=== PATIENT | male | born 1950 | race Caucasian/White ===

== ENCOUNTER 2019-11-25 09:24 | Emergency (ER) | payer MEDICARE, BC, SELFPAY ==
--- NOTE | ~2019-11-25 | CT_ITS ---
EXAMINATION: CT abdomen pelvis w con DATE: 11/25/2019 11:36 INDICATION: Lower abdominal pain TECHNIQUE: Computed tomography (CT) of the abdomen and pelvis was performed with 100 cc Omnipaque 350 intravenous contrast. Automated exposure control and iterative reconstruction technique were employe d. Exam dose: 542.56 mGy-cm total exam DLP. COMPARISON: 07/10/2011 CT abdomen pelvis FINDINGS: There is bilateral chronic lower lobe discoid scarring, present on 07/10/2011. Normal heart size. No pericardial or pleural effusion. No hepatic, splenic space-occupying mass lesion, with the exception of small likely benign lower post erior splenic cyst.. The gallbladder is present. No gallbladder wall thickening or pericholecystic fl uid or inflammation. No bile duct dilatation. Up to 2.8 x 5.6 cm hypoattenuating mass of the pancreatic body and tail, of concern for possible panc reatic malignancy. Normal adrenal glands. Small left renal cyst. Kidneys are otherwise unremarkable. No urinary tract calculus or hydroureteron ephrosis. There is mild diffuse urinary bladder wall thickening. Prostate enlargement. There are numerous diverticula of the sigmoid and descending colon, with lesser involvement of the ri ght colon. There is pericolic soft tissue stranding in the sigmoid area, thickening of the sigmoid co [place] wall, consistent with sigmoid diverticulitis. No abscess is identified. No bowel obstruction or intraperitoneal free air. There is atherosclerotic calcification of the abdominal aorta and branches but no abdominal aortic an eurysm. No intraperitoneal or retroperitoneal or pelvic lymphadenopathy or ascites. Small fat-containing umbilical hernia. No suspicious osteolytic or osteoblastic lesions. IMPRESSION: Sigmoid diverticulitis Suspected pancreatic malignancy Dr. Griffith telephoned the report including sigmoid diverticulitis and suspected pancreatic malignancy t o emergency room physician Dr. Garland on 12/05/2019 at 1212 hours Reviewed, dictated and finalized at [facility]. Reviewed, dictated and finalized at [facility]. [employer] IMPRESSION: Sigmoid diverticulitis Suspected pancreatic malignancy Dr. Griffith telephoned the report including sigmoid diverticulitis and suspected p ancreatic malignancy to emergency room physician Dr. Garland on 12/05/2019 at 1212 hours
--- NOTE | 2019-11-25 09:36 | ED.ABDPAIN ---
HPI - Abdominal Pain General Chief Complaint: Abdominal Pain Stated Complaint: abd pain Time Seen by Provider: 11/25/19 09:34 Source: patient Mode of arrival: ambulatory Limitations: no limitations History of Present Illness HPI narrative: A 69 y/o male presents to the ED with c/o lower ABD pain. Pt states that the sharp lower ABD started on his left side 2 weeks ago and migrated 4-5 days ago to his entire lower ABD. He notes that the pain is constantly a 3/10, but occasionally intensifies to a 9/10. Pt was at [facility] today and they sent him to the ED to be evaluated further. He reports nausea, dysuria, urinary frequency, and loss of appetite, but denies vomiting, fever, diarrhea, hematuria, chills, and sweats. Dr. Baxter is his PCP. He has a PMHx of hyperlipidemia, HTN, right arthroscopic knee surgery, right trigger thumb surgery, excision of neck skin lesion, cervical fusion, diverticulitis, colonoscopy, and aortic arch ulcer. Pt is a nonsmoker. MD elicited complaint: abdominal pain (Lower) Pertinent past history: diverticulitis Onset (ago): week(s) (2) Pain Consistency: constant Pain scale (0-10): 3 Quality: sharp Associated symptoms: nausea, dysuria and other (Urinary frequency, loss of appetite) Related Data Home Medications Medication Instructions Recorded Confirmed amlodipine 10 mg PO DAILY 11/25/19 aspirin 81 mg PO DAILY 11/25/19 atorvastatin 80 mg PO DAILY 11/25/19 cholecalciferol (vitamin D3) 1,000 unit PO DAILY 11/25/19 [Vitamin D3] ezetimibe 10 mg PO DAILY 11/25/19 metoprolol succinate 25 mg PO DAILY 11/25/19 nitroglycerin 0.4 mg SUBLINGUAL PRN 11/25/19 Allergies Allergy/AdvReac Type Severity Reaction Status Date / Time No Known Allergies Allergy Mild Verified 11/25/19 10:11 Review of Systems Review of Systems: All systems reviewed & are unremarkable except as noted in HPI and below Constitutional: Constitutional: Denies chills, Denies fever(s), Reports poor appetite and Denies other (Sweats) Gastrointestinal: Gastrointestinal: Reports abdominal pain (Lower), Denies diarrhea, Reports nausea and Denies vomiting Genitourinary: Genitourinary: Denies hematuria, Reports dysuria and Reports urinary frequency PMFSH Past Medical History Medical History (Updated 11/25/19 @ 13:35 by Trisha Garland MD) Aortic arch aneurysm Diverticulitis HTN (hypertension) Hyperlipidemia Trigger thumb of right hand With surgery Surgical History Surgical History (Updated 11/25/19 @ 09:49 by Norah Wilkins) H/O local excision of skin lesion On neck History of arthroscopic knee surgery Right History of colonoscopy History of fusion of cervical spine Social History Social History (Updated 11/25/19 @ 09:47 by Norah Wilkins) Smoking status: Never smoker Exam Const: General: cooperative, no acute distress and alert Nutritional Appearance: well nourished Orientation/consciousness: patient oriented x3 Limitations: no limitations HENMT: Mouth: Yes lip normal and Yes moist mucous membranes Resp: Effort & Inspection: normal respiratory effort Auscultation: clear to auscultation bilaterally Cardio: Rate: regular rate Rhythm: regular rhythm GI: GI Palp: Yes Soft to palpation, Yes Tenderness to palpation present (GI) (Diffuse lower) and Yes Guarding due to palpation present (GI) Auscultation: normal bowel sounds Skin: General skin exam: normal color Neuro: General: patient oriented x3 Cognition (Neuro): normal cognition Speech: normal speech Extrem: General: normal to inspection, full ROM and no clubbing, cyanosis or edema Psych: Mental Status: mental status grossly normal Affect: normal affect Attitude: cooperative Course Course Emergency Course: Patient with findings of acute diverticulitis without perforation or abscess. Patient is nontoxic in appearance with normal vital signs and aside from mildly elevated white blood cell count unremarkable labs. Patient does have incidental
[2019-11-25 09:39] VITALS: BP 135/75; PULSE 69; RESP 20; TEMP 36.6; O2SAT 99
[2019-11-25 09:49] LABS: Basophils Absolute Auto 0.1 K/mm3 (0.0-0.1); Basophils Percent Auto 0.4 % (0.2-1.2); Eosinophils Absolute Auto 0.1 K/mm3 (0-0.3); Eosinophils Percent Auto 0.7 % (0-4.4); Hematocrit 51.5 % (42.0-52.0); Hemoglobin 17.4 g/dL (14.0-18.0); Immature Granulocyte Absolute 0.04 K/mm3 (0.00-0.031); Immature Granulocyte Percent A 0.3 % (0-0.5); Lymphocytes Absolute Auto 1.77 K/mm3 (0.9-3.2); Lymphocytes Percent Auto 13.9 % (18.3-44.2); Mean Corpuscular HGB Conc 33.8 g/dl (32-36); Mean Corpuscular Hemoglobin 29.6 pg (26-34); Mean Corpuscular Volume 87.6 fl (80-100); Mean Platelet Volume 9.2 fl (7.4-10.4); Monocytes Absolute Auto 0.9 K/mm3 (0.1-0.6); Monocytes Percent Auto 6.9 % (2.6-8.5); Neutrophils Absolute Auto 9.9 K/mm3 (1.3-6.7); Neutrophils Percent Auto 77.8 % (45.5-73.1); Platelet Count Result 199 k/mm3 (150-375); Red Blood Count 5.88 M/mm3 (4.6-6.20); Red Cell Distribution Width 13.4 % (11.5-14.5); White Blood Count 12.7 K/mm3 (4.5-10.0)
[2019-11-25 11:02] LABS: Add Urine Microscopic? NO; Appearance Urine Clear (Clear); Bilirubin Urine Negative (Negative); Blood Urine Negative (Negative); Color Urine Yellow (Yellow); Glucose Urine UA Negative (Negative); Ketones Urine Negative (Negative); Leukocyte Esterase Ur Negative LEU/UL (Negative); Nitrate Urine Negative (Negative); Protein Urine Negative (Negative); Specific Grav Ur 1.024 (1.001-1.035); Urobilinogen Urine Negative mg/dL (<2.0)
[2019-11-25 11:15] LABS: Alanine Aminotransferase 27 U/L (4-50); Albumin Level 4.4 g/dL (3.5-5.1); Alkaline Phosphatase 97 U/L (38-126); Aspartate Amino Transferase 25 U/L (17-59); Bilirubin,Total 1.5 mg/dL (0.2-1.3); Blood Urea Nitrogen 19 mg/dL (9-20); Calcium 9.5 mg/dL (8.4-10.2); Carbon Dioxide 29 mmol/L (22-30); Chloride 98 mmol/L (98-107); Estimated CRCL calculation 62 ml/min; Estimated Glomerular Filt Rate > 60; Glucose 109 mg/dL (75-110); Lipase 128 U/L (23-300); Potassium 3.9 mmol/L (3.4-5.0); Sodium 140 mmol/L (137-145)
[2019-11-25 13:50] VITALS: BP 134/78; PULSE 68; RESP 20; O2SAT 99
== END 2019-11-25 13:50 | disposition home or self-care (01) ==
PROVIDERS: Emergency Provider Emergency Medicine; PCP Family Medicine
DX: K57.92 Diverticulitis of intestine, part unspecified, without perforation or abscess without bleeding (principal); K86.9 Disease of pancreas, unspecified; I10 Essential (primary) hypertension; E78.5 Hyperlipidemia, unspecified; Z98.1 Arthrodesis status
CPT/HCPCS: 36415; 74177; 80053; 81003; 83690; 85025; 99284; Q9967

== ENCOUNTER 2020-05-18 13:43 | Observation (INO) | payer MEDICARE, BC, SELFPAY ==
--- NOTE | ~2020-05-18 | XR_ITS ---
XR chest 2V 05/18/2020 14:43 Indication: Nausea. Chemotherapy treatment for pancreatic cancer. Weakness. Procedure: PA and lateral views of the chest Comparison: CT dated 11/25/2019 Findings: Heart size normal. There is left lower lobe atelectasis/scarring. Portacatheter tip in the SVC. No focal pneumonia, pulmonary edema, pleural effusion or pneumothorax. Impression: 1: Left lower lobe atelectasis/scarring. Reviewed, dictated and finalized at location [facility]. Impression: 1: Left lower lobe atelectasis/scarring.
--- NOTE | ~2020-05-18 | XR_ITS ---
EXAMINATION: XR abdomen obstructive series DATE: 05/18/2020 20:51 INDICATION: Nausea and vomiting TECHNIQUE: Supine and upright views of the abdomen. FINDINGS: Comparison CT dated 11/25/2019 The visualized lung parenchyma is normal.. There is a nonobstructive bowel gas pattern. Gas and stool are seen throughout the colon to the level of the rectum. There is no free air. There is left basil ar atelectasis. IMPRESSION: 1. No acute abdominal abnormality. Reviewed, dictated and finalized at location [facility].
[2020-05-18 14:02] VITALS: BP 118/77; PULSE 97; RESP 18; TEMP 36.8; O2SAT 98
--- NOTE | 2020-05-18 14:08 | ECG_ITS ---
Measurements Intervals [place] Rate: 85 P: 73 ND: 132 QRS: 90 QRSD: 103 T: 6 QT: 355 QTc: 424 Interpretive Statements SINUS RHYTHM INCOMPLETE RIGHT BUNDLE BRANCH BLOCK BORDERLINE ST ABNORMALITY- ANTEROLAT/INF LEADS BORDERLINE ECG Electronically Signed On 05-18-2020 16:20:28 CDT by Rocael Lomax D.O.
[2020-05-18 14:12] VITALS: PULSE 100
[2020-05-18 14:30] LABS: Basophils Percent Auto 0.3 % (0.2-1.2); Eosinophils Absolute Auto 0.3 K/mm3 (0-0.3); Eosinophils Percent Auto 2.9 % (0-4.4); Hematocrit 51.3 % (42.0-52.0); Hemoglobin 17.3 g/dL (14.0-18.0); Immature Granulocyte Absolute 0.08 K/mm3 (0.00-0.031); Immature Granulocyte Percent A 0.7 % (0-0.5); Lymphocytes Absolute Auto 1.63 K/mm3 (0.9-3.2); Lymphocytes Percent Auto 15.2 % (18.3-44.2); Mean Corpuscular HGB Conc 33.7 g/dl (32-36); Mean Corpuscular Hemoglobin 28.3 pg (26-34); Mean Platelet Volume 9.5 fl (7.4-10.4); Monocytes Absolute Auto 0.4 K/mm3 (0.1-0.6); Monocytes Percent Auto 3.6 % (2.6-8.5); Neutrophils Absolute Auto 8.3 K/mm3 (1.3-6.7); Neutrophils Percent Auto 77.3 % (45.5-73.1); Platelet Count Result 303 k/mm3 (150-375); Red Blood Count 6.11 M/mm3 (4.6-6.20); Red Cell Distribution Width 15.3 % (11.5-14.5); White Blood Count 10.7 K/mm3 (4.5-10.0)
[2020-05-18 14:42] LABS: Alanine Aminotransferase 14 U/L (4-50); Albumin Level 4.6 g/dL (3.5-5.1); Alkaline Phosphatase 96 U/L (38-126); Anion Gap 16.7 mmol/L (7-16); Aspartate Amino Transferase 21 U/L (17-59); Bilirubin,Total 0.9 mg/dL (0.2-1.3); Blood Urea Nitrogen 17 mg/dL (9-20); Calcium 10.2 mg/dL (8.4-10.2); Carbon Dioxide 29 mmol/L (22-30); Chloride 93 mmol/L (98-107); Estimated CRCL calculation 58 ml/min; Estimated Glomerular Filt Rate > 60; Glucose 155 mg/dL (75-110); Potassium 3.7 mmol/L (3.4-5.0); Sodium 135 mmol/L (137-145)
[2020-05-18 14:46] LABS: Add Urine Microscopic? YES; Appearance Urine Clear (Clear); Bacteria Urine Trace /hpf; Bilirubin Urine Negative (Negative); Blood Urine Negative (Negative); Color Urine Yellow (Yellow); Glucose Urine UA Negative (Negative); Hyaline Casts Urine 20-29 /lpf; Ketones Urine Trace mg/dL (Negative); Leukocyte Esterase Ur Negative LEU/UL (Negative); Mucus Urine Heavy /lpf; Nitrate Urine Negative (Negative); Protein Urine 1+ mg/dL (Negative); RBC Urine 0-2 /hpf (0-2); Specific Grav Ur 1.025 (1.001-1.035); Squamous Epithelial Cell Urine Rare /hpf (Few); Urobilinogen Urine Negative mg/dL (<2.0); WBC Urine 0-3 /hpf
[2020-05-18] MEDS: SODIUM CHLORIDE 0.9% IV 1,000 ML 1000 ML IV CONT (15:43)
[2020-05-18] MEDS: ONDANSETRON INJ 4 MG/2 ML VIAL IV PUSH (15:43)
[2020-05-18 16:38] VITALS: BP 144/80; PULSE 68; RESP 18; O2SAT 96
--- NOTE | 2020-05-18 16:47 | ED.GENADULT ---
HPI - General Adult General Chief complaint: Weakness Stated complaint: medication reaction Time Seen by Provider: 05/18/20 14:58 Source: patient and family Mode of arrival: ambulatory Limitations: no limitations History of Present Illness HPI narrative: 69-year-old with a history of pancreatic CA presently going through chemotherapy at [facility] [place] here with complaints of nausea vomiting unable to eat or drink. Patient states that he is feeling extremely weak and tired since chemotherapy approximately 5 days ago. He denies any fever or chills no history of cough or shortness of breath. He states that he has abdominal pain for last several months but nothing unusual at this time. His oncologist is Dr. Sandhu . Onset (ago): week(s) (1) Location: abdomen Severity: moderate Severity scale (1-10): 9 Quality: aching Pain Consistency: constant Relieving factors: none Exacerbating factors: none Associated symptoms: denies other symptoms Related Data Home Medications Medication Instructions Recorded Confirmed atorvastatin 80 mg PO DAILY 11/25/19 ezetimibe 10 mg PO DAILY 11/25/19 acetaminophen 1,000 mg PO Q6H PRN 05/18/20 duloxetine 30 mg PO 05/18/20 ergocalciferol (vitamin D2) 05/18/20 [Vitamin D2] gabapentin 300 mg PO 05/18/20 lidocaine-prilocaine 05/18/20 loperamide 2 mg PO 05/18/20 naproxen sodium [Aleve] 220 mg PO BID PRN 05/18/20 ondansetron HCl 8 mg PO 05/18/20 tamsulosin 0.4 mg PO 05/18/20 tramadol 50 mg PO 05/18/20 Allergies Allergy/AdvReac Type Severity Reaction Status Date / Time No Known Allergies Allergy Mild Verified 05/18/20 14:15 Review of Systems Review of Systems: All systems reviewed & are unremarkable except as noted in HPI and below Constitutional: Constitutional: Reports no additional constitutional complaints Eyes: Eyes: Reports no additional eye complaints ENT: Reports system reviewed and no additional complaints, except as documented Cardiovascular: Cardiovascular: Reports no additional cardiovascular complaints Respiratory: Respiratory: Reports no additional respiratory complaints Gastrointestinal: Gastrointestinal: Reports as per HPI Musculoskeletal: Musculoskeletal: Reports no additional musculoskeletal complaints Neurologic: Reports system reviewed and no additional complaints, except as documented [facility] Past Medical History Medical History Aortic arch aneurysm Diverticulitis HTN (hypertension) Hyperlipidemia Trigger thumb of right hand With surgery Surgical History Surgical History H/O local excision of skin lesion On neck History of arthroscopic knee surgery Right History of colonoscopy History of fusion of cervical spine Social History Social History Smoking status: Never smoker Gender identity (if verbalized by the patient): Male Exam Const: General: no acute distress and alert Orientation/consciousness: patient oriented x3 HENMT: Head: normal to inspection Eyes: Pupils: Equal, round and reactive pupils present Chest: Chest palpation & inspection: normal inspection of the chest Resp: Effort & Inspection: normal respiratory effort Cardio: Rate: regular rate Rhythm: regular rhythm GI: GI Palp: Yes Soft to palpation and Yes Tenderness to palpation present (GI) (mostly upper abd) Back/Spine/Pelvis: Back: no CVA tenderness Skin: General skin exam: normal color Neuro: General: patient oriented x3 and moves all extremities Course Course Emergency Course: Patient feeling slightly better after liter of fluid and Zofran, he still continues to be nauseated. I informed him about his lab work he agreed for admission. Discussed with Ana and he agreed to admit patient Vital Signs Vital signs: Vital Signs Temperature 36.8 C 05/18/20 14:02 Pulse Rate 97 05/18/20
[2020-05-18 17:02] VITALS: BP 134/87; PULSE 73; RESP 18; O2SAT 97
[2020-05-18] MEDS: PANTOPRAZOLE SODIUM IV 40 MG VIAL IV PUSH (18:10)
[2020-05-18 18:26] VITALS: BMI 21.9
[2020-05-18 18:31] VITALS: BP 145/80; PULSE 69; RESP 18; TEMP 36.4; O2SAT 100
[2020-05-18] MEDS: SODIUM CHLORIDE 0.9% IV 1,000 ML 125 ML IV CONT (19:10)
[2020-05-18 20:00] VITALS: BP 137/74; PULSE 75; RESP 16; TEMP 36.5; O2SAT 97
--- NOTE | 2020-05-18 20:27 | PM.IMHP ---
H&P: HPI History of Present Illness Date/Time: 05/18/20 20:27 Chief complaint: intractable nausea and dehydration Narrative: Ajit Ocampo is a 69 year old maleWho has a history of pancreatic cancer. The patient withdrawal Whipple earlier this year. He had gotten chemotherapy prior to his Whipple and recently had chemotherapy approximately 5 days ago. The patient stated he has not had a bowel movement the this past Tuesday. The patient stated that this last he had a bag of fluids to the [facility]. She typically goes to [facility] for of his treatment is chemotherapy. His oncologist is Dr. Torres. the patient stated that he has been vomiting very little just some yellow phlegm. He has not had any fever or chills. He stated that he did have anything for nausea at home. He only takes gabapentin and baclofen. He is having some epigastric discomfort as well. He does have a history of diverticulosis with diverticulitis in the past a. However his pain is in the epigastric area. 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 The patient was given Zofran and Protonix in the emergency room. He was also started on IV fluids. He started to feel better that when he ate some Jell-O he had some epigastric discomfort. I spent approximately 1 hour with the patient. Date of service 05/18/2020 Review of Systems Review of Systems: All systems reviewed & are unremarkable except as noted in HPI and below Constitutional: Constitutional: Reports as per HPI and Reports no additional constitutional complaints Eyes: Eyes: Reports as per HPI and Reports no additional eye complaints ENT: Reports system reviewed and no additional complaints, except as documented and Reports Normal hearing present Cardiovascular: Cardiovascular: Reports no additional cardiovascular complaints Respiratory: Respiratory: Reports no additional respiratory complaints and Reports no additional respiratory complaints Gastrointestinal: Gastrointestinal: Reports as per HPI and Reports no additional gastrointestinal complaints Musculoskeletal: Musculoskeletal: Reports no additional musculoskeletal complaints Integumentary/Breasts: Skin/Breast: Reports system reviewed and no additional complaints, except as docu and Reports as per HPI Neurologic: Reports system reviewed and no additional complaints, except as documented, Reports as per HPI and Reports Normal hearing present Psychiatric: Psychiatric: Reports no additional psychiatric complaints and Reports as per HPI Endocrine: Endocrine: Reports no additional endocrine complaints Hematologic/Lymphatic: Hematologic/Lymphatic: Reports no additional hematologic/lymphatic complaints Allergic/Immunologic: Allergic/Immunologic: Reports no additional allergic/immunologic complaints [facility] Past Medical History Medical History (Updated 05/18/20 @ 20:41 by Ana Lugo NP) Aortic arch aneurysm Chemotherapy-induced neuropathy Diverticulitis HTN (hypertension) Hyperlipidemia Pancreatic cancer Port-A-Cath in place left upper chest Trigger thumb of right hand With surgery Surgical History Surgical History (Updated 05/18/20 @ 20:41 by Ana Lugo NP) H/O abdominal surgery Whipple procedure due to pancreatic cancer H/O cataract extraction bilat H/O local excision of skin lesion On neck History of arthroscopic knee surgery Right History of colonoscopy History of fusion of cervical spine Family History Family History (Updated 05/18/20 @ 20:40 by Ana Lugo NP) Father Pancreatic cancer Mother Kidney problem Social History Social History (Updated 05/18/20 @ 20:43 by Ana Lugo NP) Social History: the patient is and his is a durable for healthcare. The patient is a full code. He has 1 child. Patient stated that he retired from the [employer]
[2020-05-19] VITALS: BP 141/81; PULSE 72; RESP 16; TEMP 36.2; O2SAT 97
[2020-05-19] MEDS: SODIUM CHLORIDE 0.9% IV 1,000 ML 125 ML IV CONT ×2 (03:27→11:43)
[2020-05-19 04:00] VITALS: BP 127/71; PULSE 70; RESP 16; TEMP 36.8; O2SAT 96
[2020-05-19 05:31] LABS: Basophils Percent Auto 0.4 % (0.2-1.2); Eosinophils Absolute Auto 0.6 K/mm3 (0-0.3); Eosinophils Percent Auto 7.5 % (0-4.4); Hematocrit 39.5 % (42.0-52.0); Hemoglobin 13.2 g/dL (14.0-18.0); Immature Granulocyte Absolute 0.07 K/mm3 (0.00-0.031); Immature Granulocyte Percent A 0.9 % (0-0.5); Lymphocytes Absolute Auto 1.65 K/mm3 (0.9-3.2); Lymphocytes Percent Auto 20.2 % (18.3-44.2); Mean Corpuscular HGB Conc 33.4 g/dl (32-36); Mean Corpuscular Hemoglobin 27.9 pg (26-34); Mean Corpuscular Volume 83.5 fl (80-100); Mean Platelet Volume 9.5 fl (7.4-10.4); Monocytes Absolute Auto 0.4 K/mm3 (0.1-0.6); Monocytes Percent Auto 5.4 % (2.6-8.5); Neutrophils Absolute Auto 5.4 K/mm3 (1.3-6.7); Neutrophils Percent Auto 65.6 % (45.5-73.1); Platelet Count Result 262 k/mm3 (150-375); Red Blood Count 4.73 M/mm3 (4.6-6.20); Red Cell Distribution Width 14.7 % (11.5-14.5); White Blood Count 8.2 K/mm3 (4.5-10.0)
[2020-05-19 05:41] LABS: Lactic Acid 0.8 mmol/L (0.7-2.1)
[2020-05-19 05:46] LABS: Anion Gap 7.6 mmol/L (7-16); Blood Urea Nitrogen 14 mg/dL (9-20); Calcium 8.4 mg/dL (8.4-10.2); Carbon Dioxide 26 mmol/L (22-30); Chloride 105 mmol/L (98-107); Estimated CRCL calculation 77 ml/min; Estimated Glomerular Filt Rate > 60; Glucose 133 mg/dL (75-110); Phosphorus 3.2 mg/dL (2.5-4.5); Potassium 3.6 mmol/L (3.4-5.0); Sodium 135 mmol/L (137-145)
[2020-05-19 08:08] LABS: Free T4 Free Thyroxine Reflex 1.33 ng/dL (0.78-2.19)
[2020-05-19] MEDS: PANTOPRAZOLE SODIUM IV 40 MG VIAL IV PUSH (08:25)
[2020-05-19] MEDS: GABAPENTIN 300 MG CAPSULE PO (08:26)
[2020-05-19] MEDS: BACLOFEN 10 MG TABLET PO ×2 (08:26→12:31)
[2020-05-19 09:03] LABS: Total Triiodothyronine (T3) 1.08 NG/ML (0.97-1.69)
[2020-05-19 10:00] VITALS: BP 116/55; PULSE 73; RESP 16; TEMP 36.7; O2SAT 98
--- NOTE | 2020-05-19 12:18 | PM.DS ---
DS: Admitting Diagnosis Admitting Diagnosis Admitting Diagnosis: Nausea with vomiting, unspecified DS: Discharge Diagnosis Discharge Diagnosis (1) Intractable nausea and vomiting: Code(s): R11.2 - Nausea with vomiting, unspecified Status: Acute Assessment and Plan: Date of Service 05/19/20 Mr. Ocampo is a pleasant 69 yo M with pancreatic cancer who presented to the ED for evaluation of weakness, lethargy, dizziness, decreased appetite and significant nausea. He follows with Dr Charmaine Huddleston at [facility] for pancreatic cancer, underwent Whipple March 2020 and recently restarted chemotherapy last week. He received chemotherapy last on Tuesday and his symptoms began after chemo. He received a bag of IV fluids at [facility] . He describes significant nausea and intermittent vomiting with just a small amount of mucus. Not able to eat or drink much of anything and had not had a bowel movement in the days prior to arrival. KUB showed no evidence of obstruction. He was rehydrated with approximately 3L of normal saline over the course of 05/18 to 05/19, treated with zofran. He was tolerating a bit of a bland diet prior to discharge and was feeling improved. Vitals were stable and he was hemodynamically stable for discharge 05/19/20. He has an upcoming appointment next week with his oncologist, Dr Huddleston, and he is instructed to keep this appointment and call her office if he has any other issues, return to ER if needed. (2) Chemotherapy-induced neuropathy: Code(s): G62.0 - Drug-induced polyneuropathy; T45.1X5A - Adverse effect of antineoplastic and immunosuppressive drugs, initial encounter Status: Chronic Assessment and Plan: Maintained on his gabapentin. (3) Chemotherapy induced nausea and vomiting: Code(s): R11.2 - Nausea with vomiting, unspecified; T45.1X5A - Adverse effect of antineoplastic and immunosuppressive drugs, initial encounter Status: Acute Assessment and Plan: See above. It is suspected that his symptoms are related to cancer and recent chemotherapy. (4) Dehydration: Code(s): E86.0 - Dehydration Status: Resolved DS: Summary Time Spent with Patient Time attestation: Total time spent providing and/or coordinating discharge services: 35 minutes Exam Narrative: Exam Narrative: General: Male sitting up in bedside chair eating lunch in no acute distress. HEENT: Normocephalic, EOMI, oral mucosa moist. Cardiovascular: Rate and rhythm are regular. Respiratory: Lungs clear to auscultation all sharp. Non-labored breathing. Abdomen: Soft, non-tender, non-distended, bowel sounds hypoactive. Extremities: Peripheral pulses intact. No edema. Neuro: No focal neurological deficits. Speech is slow and very mildly delayed thought process he describes has been ongoing since he began chemotherapy. DS: Data Data Completed and Pending Labs on day of discharge: Last Vital Signs Temp 98.0 F 05/19/20 10:00 Pulse 73 05/19/20 10:00 Resp 16 05/19/20 10:00 BP 116/55 L 05/19/20 10:00 Pulse Ox 98 05/19/20 10:00 ITS Impressions Chest X-Ray 05/18/20 14:43 Impression: 1: Left lower lobe atelectasis/scarring. Abdomen X-Ray 05/18/20 20:56 IMPRESSION: 1. No acute abdominal abnormality. Laboratory Tests 05/19/20 04:50 05/19/20 04:50 Discharge Plan Discharge Attending physician on discharge: [place] Discharging Clinician: Yumiko Dodd Anticipated Discharge Date/Time: 05/19/20 12:20 Patient Disposition: Home, Self-Care Activity: as tolerated Diet: as tolerated Discharge Instructions: Keep your scheduled follow up appointment with Dr. Huddleston for next week. If you experience worsening symptoms, please notify her office or return to ER. Eating small meals through the day may help with your na
[2020-05-19 12:48] VITALS: BMI 21.3
--- NOTE | 2020-05-19 15:45 | PCCCNOTE ---
On 05/19/20, the student, [ Sadie White], provided care and [facility]. I have reviewed the student's documentation and agree with the findings.
== END 2020-05-19 13:00 | disposition home or self-care (01) ==
LOC: ANHED 17:26 → ANH2MED 17:49
PROVIDERS: Emergency Medicine; Nurse Practitioner; Admitting Provider Internal Medicine; Emergency Provider Family Medicine; PCP Family Medicine; Visit Provider Physician Assistant
DX: R11.2 Nausea with vomiting, unspecified (principal); G62.0 Drug-induced polyneuropathy; T45.1X5A Adverse effect of antineoplastic and immunosuppressive drugs, initial encounter; E86.0 Dehydration; C25.9 Malignant neoplasm of pancreas, unspecified; I10 Essential (primary) hypertension; E78.5 Hyperlipidemia, unspecified; Z92.21 Personal history of antineoplastic chemotherapy
CPT/HCPCS: 36415; 71046; 74019; 80048; 80053; 81001; 83605; 83735; 84100; 84439; 84443; 84480; 85025; 93005; 96361; 96374; 96375; 96376; 99285; A9270; C9113; G0378; J0131; J2405; J3010; J7030

== ENCOUNTER 2020-05-30 14:48 | Emergency (ER) | payer MEDICARE, BC, SELFPAY ==
[2020-05-30] VITALS (9 sets, daily range): BP systolic 109–144; BP diastolic 63–81; PULSE 63–81; RESP 14–20; TEMP 36.8; O2SAT 95–99
--- NOTE | ~2020-05-30 | CT_ITS ---
EXAMINATION: CT abdomen pelvis w con EXAM DATE: 05/30/2020 18:12 INDICATION: Low abdominal pain, pancreatic cancer. Whipple procedure. Nausea. TECHNIQUE: Spiral CT of the abdomen and pelvis was performed following intravenous injection of 100 m L Omnipaque 350. Axial, coronal and sagittal images were reviewed. The dose-length product (DLP) fo r this examination was 233.11 mGy-cm. The exposure was tailored according to patient size (auto mA e xposure control), and iterative reconstruction (ASIR) was used as additional dose reduction technique . Comparison is made to prior examination from 12/06/2008. FINDINGS: Right lower lobe segmental pulmonary emboli. There is also a sizable hypodense region suspi cious for large thrombus extending from the SVC across the tricuspid valve to the right atrium. This measures 1.1 cm in thickness. Appearance is quite discrete for inflow artifact and given the right ba silar pulmonary emboli, artifact is believed unlikely. Additionally, reportedly patient does have a P ICC line. There are surgical changes from Whipple procedure, with resection of the previously seen pancreatic t ail hypodense mass. There is low density at the root of the mesentery, expected location of pancreati c body which could be edema from acute pancreatitis, or could be local recurrence of pancreatic cance r. Region measures about 3 cm in diameter. Adrenal glands and liver are unremarkable. Spleen has been resected. Gallbladder is unremarkable. No biliary obstruction. Kidneys enhance symmetrically. There is no hydronephrosis. The prostate is unremarkable. The bladder is unremarkable. There is no retroperitoneal or pelvic lymphadenopathy. There is moderate scattered arteriosclerotic disease. There is extensive colonic diverticulosis. There is no adjacent inflammatory change to suggest diver ticulitis. The appendix is not positively visualized. There is no pericecal inflammatory change to s uggest appendicitis. The stomach and small bowel are unremarkable. There is expected amount of col onic stool. No free intraperitoneal gas. The lung bases are unremarkable. There are no osteoblas tic or osteolytic lesions identified. IMPRESSION: 1. Right basilar pulmonary emboli. Also suspect sizable thrombus extending down the SVC into the rig ht ventricle. 2. Hypodense pancreatic body region, acute pancreatitis versus pancreatic cancer. 3. Extensive colonic diverticulosis. 4. Small nonspecific free pelvic fluid. I discussed thromboembolic disease, pancreatic findings with Héctor Nolan MD at 05/30/2020 18:24 CDT. Reviewed, dictated and finalized at location A. IMPRESSION: 1. Right basilar pulmonary emboli. Also suspect sizable thrombus extending sammie n the SVC into the right ventricle. 2. Hypodense pancreatic body region, acute pancreatitis versus pancreatic canc er. 3. Extensive colonic diverticulosis. 4. Small nonspecific free pelvic fluid. I discussed thromboembolic disease, pancreatic findings with Héctor Nolan MD at 05/30/2020 18:24 CDT.
--- NOTE | ~2020-05-30 | XR_ITS ---
EXAMINATION: XR chest 2V EXAM DATE: 05/30/2020 16:59 INDICATION: Weakness, nausea. Symptoms after chemotherapy. Mid chest pain, abdominal pain. TECHNIQUE: Frontal and lateral projections of the chest obtained and reviewed. Comparison is made to prior examination from 05/18/2020. FINDINGS: Moderate chronic hyperinflation. Left-sided CT injectable Chemo-Port. Cervical fusion hard villa. No confluent consolidation, pneumothorax or pleural effusion suspected. There are no osseous ab normalities identified. IMPRESSION: No acute cardiopulmonary findings. Reviewed, dictated and finalized at location A.
--- NOTE | 2020-05-30 15:09 | ECG_ITS ---
Measurements Intervals [place] Rate: 67 P: 80 SC: 135 QRS: 86 QRSD: 104 T: 61 QT: 365 QTc: 388 Interpretive Statements SINUS RHYTHM RSR' IN V1 OR V2, CONSIDER RIGHT VENTRICULAR HYPERTROPHY OR RIGHT VCD BASELINE ARTIFACT- I, II, III, AVR, AVL, AVF, V1-V6 BORDERLINE ECG Electronically Signed On 05-30-2020 15:47:02 CDT by Rocael Lomax D.O.
[2020-05-30 15:42] LABS: Basophils Percent Auto 0.4 % (0.2-1.2); Hematocrit 44.1 % (42.0-52.0); Hemoglobin 14.8 g/dL (14.0-18.0); Immature Granulocyte Absolute 0.02 K/mm3 (0.00-0.031); Immature Granulocyte Percent A 0.3 % (0-0.5); Lymphocytes Absolute Auto 1.36 K/mm3 (0.9-3.2); Lymphocytes Percent Auto 18.4 % (18.3-44.2); Mean Corpuscular HGB Conc 33.6 g/dl (32-36); Mean Corpuscular Hemoglobin 27.9 pg (26-34); Mean Corpuscular Volume 83.1 fl (80-100); Mean Platelet Volume 9.1 fl (7.4-10.4); Monocytes Absolute Auto 0.3 K/mm3 (0.1-0.6); Monocytes Percent Auto 3.9 % (2.6-8.5); Neutrophils Absolute Auto 5.7 K/mm3 (1.3-6.7); Platelet Count Result 282 k/mm3 (150-375); Red Blood Count 5.31 M/mm3 (4.6-6.20); Red Cell Distribution Width 15.6 % (11.5-14.5); White Blood Count 7.4 K/mm3 (4.5-10.0)
[2020-05-30 15:51] LABS: Alanine Aminotransferase 14 U/L (4-50); Albumin Level 4.1 g/dL (3.5-5.1); Alkaline Phosphatase 91 U/L (38-126); Anion Gap 9 mmol/L (8-16); Aspartate Amino Transferase 18 U/L (17-59); Bilirubin,Total 0.7 mg/dL (0.2-1.3); Blood Urea Nitrogen 22 mg/dL (9-20); Calcium 9.3 mg/dL (8.4-10.2); Carbon Dioxide 27 mmol/L (22-30); Chloride 97 mmol/L (98-107); Estimated CRCL calculation 47 ml/min; Estimated Glomerular Filt Rate 55; Glucose 145 mg/dL (75-110); Sodium 133 mmol/L (137-145)
[2020-05-30] MEDS: MORPHINE SULFATE 4 MG/ML INJ IV PUSH (17:37)
[2020-05-30] MEDS: ONDANSETRON INJ 4 MG/2 ML VIAL IV PUSH (17:37)
--- NOTE | 2020-05-30 18:36 | ED.GENADULT ---
HPI - General Adult General Chief complaint: Weakness <Héctor Nolan MD - Last Filed: 05/30/20 23:28> Stated complaint: weakness, nausea post chemo <Héctor Nolan MD - Last Filed: 05/30/20 23:28> Time Seen by Provider: 05/30/20 16:44 <Héctor Nolan MD - Last Filed: 05/30/20 23:28> History of Present Illness HPI narrative: Patient is a 69-year-old male with history of pancreatic cancer who is undergoing chemotherapy that presents with abdominal pain. Reports abdominal pain began 2 days ago. Last received chemotherapy today before symptoms began. Associate with nausea and fatigue. Cannot describe any aggravating or alleviating factors. He has been taking baclofen without relief of the pain and Zofran and prochlorperazine without relief of nausea. Obtains his care from [facility]. <Héctor Nolan MD - Last Filed: 05/30/20 23:28> Related Data Home medications: Home Medications Medication Instructions Recorded Confirmed baclofen 10 mg PO TID 05/18/20 05/18/20 prochlorperazine maleate 05/30/20 <Héctor Nolan MD - Last Filed: 05/30/20 23:28> Allergies/adverse reactions: Allergies Allergy/AdvReac Type Severity Reaction Status Date / Time No Known Allergies Allergy Mild Verified 05/30/20 16:47 <Héctor Nolan MD - Last Filed: 05/30/20 23:28> Review of Systems Review of Systems: All systems reviewed & are unremarkable except as noted in HPI and below <Héctor Nolan MD - Last Filed: 05/30/20 23:28> Constitutional: Constitutional: Reports fatigue and Reports weakness <Héctor Nolan MD - Last Filed: 05/30/20 23:28> Cardiovascular: Cardiovascular: Denies chest pain and Denies rapid heart rate <Héctor Nolan MD - Last Filed: 05/30/20 23:28> Respiratory: Respiratory: Denies cough and Denies dyspnea <Héctor Nolan MD - Last Filed: 05/30/20 23:28> Gastrointestinal: Gastrointestinal: Reports abdominal pain, Denies diarrhea, Reports nausea and Denies vomiting <Héctor Nolan MD - Last Filed: 05/30/20 23:28> PMFSH Past Medical History Medical History: Medical History (Updated 05/30/20 @ 21:22 by Héctor Nolan MD) Aortic arch aneurysm Chemotherapy-induced neuropathy Diverticulitis HTN (hypertension) Hyperlipidemia Pancreatic cancer Port-A-Cath in place left upper chest Trigger thumb of right hand With surgery <Héctor Nolan MD - Last Filed: 05/30/20 23:28> Surgical History Surgical History: Surgical History (Updated 05/18/20 @ 20:41 by Ana Lugo NP) H/O abdominal surgery Whipple procedure due to pancreatic cancer H/O cataract extraction bilat H/O local excision of skin lesion On neck History of arthroscopic knee surgery Right History of colonoscopy History of fusion of cervical spine <Héctor Nolan MD - Last Filed: 05/30/20 23:28> Family History Family History: Family History (Updated 05/18/20 @ 20:40 by Ana Lugo NP) Father Pancreatic cancer Mother Kidney problem <Héctor Nolan MD - Last Filed: 05/30/20 23:28> Social History Social History: Social History (Updated 05/18/20 @ 20:43 by Ana Lugo NP) Social History: the patient is and his is a durable for healthcare. The patient is a full code. He has 1 child. Patient stated that he retired from the [employer]. Lifelong nonsmoker. Does not use any marijuana or illicit drugs. Smoking status: Never smoker Alcohol intake: never Substance use: never Gender identity (if verbalized by the patient): Male Spiritual care concerns: No <Héctor Nolan MD - Last Filed: 05/30/20 23:28> Exam Narrative: Exam Narrative: GENERAL: Well-appearing, well-nourished, and in no acute distress. HEAD: Normocephalic, atraumatic. CHEST: Clear to auscultation. No respiratory distress. HEART: Regular rate and rhythm. Normal periphe
[2020-05-30 18:51] LABS: Add Urine Microscopic? YES; Appearance Urine Clear (Clear); Bilirubin Urine Negative (Negative); Blood Urine Negative (Negative); Color Urine Yellow (Yellow); Glucose Urine UA Negative (Negative); Ketones Urine Negative (Negative); Leukocyte Esterase Ur Trace LEU/UL (Negative); Mucus Urine Few /lpf; Nitrate Urine Negative (Negative); Protein Urine Negative (Negative); RBC Urine 0-2 /hpf (0-2); Squamous Epithelial Cell Urine Rare /hpf (Few); Urobilinogen Urine Negative mg/dL (<2.0); WBC Urine 0-3 /hpf
[2020-05-30 18:52] LABS: Lipase 1969 U/L (23-300)
[2020-05-30 18:55] LABS: INR 1.1; Prothrombin Time 13.7 Seconds (11.1-14.7)
[2020-05-30 19:06] LABS: Specific Grav Ur 1.048 (1.001-1.035)
[2020-05-30] MEDS: HEPARIN SODIUM 5,000 UNITS/ML VIAL 5500 UNITS IV PUSH (19:16)
[2020-05-30] MEDS: HEPARIN SOD/D5W 100 UNITS/ML 25,000 UNITS/250 ML BAG 12 UNITS IV CONT (19:17)
[2020-05-30] MEDS: SODIUM CHLORIDE 0.9% IV 1,000 ML 150 ML IV CONT (21:45)
--- NOTE | 2020-05-31 00:22 | PC.NURSE ---
0014 called [facility] to request transport. declined.
--- NOTE | 2020-05-31 00:23 | PC.NURSE ---
0015 Called [facility] to request transport. ETA [id number]
[2020-05-31 00:30] VITALS: BP 121/66; PULSE 69; RESP 16; O2SAT 95
[2020-05-31] MEDS: MORPHINE SULFATE 4 MG/ML INJ IV PUSH (00:42)
[2020-05-31] MEDS: ONDANSETRON INJ 4 MG/2 ML VIAL IV PUSH (00:42)
--- NOTE | 2020-05-31 01:19 | PC.NURSE ---
0101 called [facility] to transport patient to [place]. Accepted. 0110 cancelled Patricia
[2020-05-31 01:45] LABS: Partial Thromboplastin Time > 200.0 SECONDS (22.3-36.8)
[2020-05-31 01:48] VITALS: BP 114/76; PULSE 72; RESP 16; TEMP 36.9; O2SAT 93
--- NOTE | 2020-05-31 01:57 | PC.NURSE ---
Pt transferred to [facility] [place] [id number] by EMS. EMS arrived as PTT result came back from lab at critical >200. ED MD Baker contacted and gave verbal orders with read back to stop pt's Heparin drip completely. Drip was stopped and food stylistLICO Montague called at [facility] and updated with critical value and that we have stopped the Heparin drip.
== END 2020-05-31 01:50 | disposition short-term general hospital (02) ==
PROVIDERS: Emergency Medicine; Emergency Provider Emergency Medicine; PCP Family Medicine
DX: K85.90 Acute pancreatitis without necrosis or infection, unspecified (principal); I82.210 Acute embolism and thrombosis of superior vena cava; I26.99 Other pulmonary embolism without acute cor pulmonale; C25.9 Malignant neoplasm of pancreas, unspecified; Z79.899 Other long term (current) drug therapy; I10 Essential (primary) hypertension; E78.5 Hyperlipidemia, unspecified; Z98.42 Cataract extraction status, left eye; Z98.41 Cataract extraction status, right eye; Z98.1 Arthrodesis status; G62.0 Drug-induced polyneuropathy; T45.1X5A Adverse effect of antineoplastic and immunosuppressive drugs, initial encounter; K57.90 Diverticulosis of intestine, part unspecified, without perforation or abscess without bleeding; R94.31 Abnormal electrocardiogram [ECG] [EKG]
CPT/HCPCS: 36415; 71046; 74177; 80053; 81001; 83690; 85025; 85610; 85730; 93005; 96365; 96366; 96375; 96376; 99291; J1644; J2270; J2405; J7030; Q9967

== ENCOUNTER 2020-06-14 07:58 | Emergency (ER) | payer MEDICARE, BC, SELFPAY ==
[2020-06-14] VITALS (17 sets, daily range): BP systolic 80–165; BP diastolic 57–86; PULSE 61–107; RESP 14–20; TEMP 37; O2SAT 97–100
--- NOTE | ~2020-06-14 | CT_ITS ---
EXAMINATION: CT brain wo con DATE: 06/14/2020 09:26 INDICATION: Syncope. Fall. TECHNIQUE: Computed tomography (CT) of the head was performed without intravenous contrast. Sagittal and coronal reconstructions were performed. The mA was adjusted according to patient size. Iterative reconstruction technique was employed. The dose-length product was 605.33 mGy-cm. COMPARISON: Brain MR dated 04/02/2013 FINDINGS: No fracture. No acute intracranial hemorrhage, acute infarction or abnormal extra axial fluid collect ion. There is minimal scattered white matter hypoattenuation consistent with chronic small vessel isc hemic disease. Ventricles are normal and symmetric. No mass/mass effect. Changes of bilateral intraoc ular lens replacement. The orbits, paranasal sinuses and mastoid air cells are normal. IMPRESSION: 1. No fracture or acute intracranial process. 2. Minimal periventricular predominant white matter hypoattenuation consistent with chronic small ves tr ischemic disease. Reviewed, dictated and finalized at location A. IMPRESSION: 1. No fracture or acute intracranial process. 2. Minimal periventricular predominant white matter hypoattenuation consistent with chronic small vessel ischemic disease.
--- NOTE | ~2020-06-14 | CT_ITS ---
EXAMINATION: CTA chest PE protocol DATE: 06/14/2020 09:27 INDICATION: Syncope. Recent pulmonary embolism. TECHNIQUE: Computed tomography (CT) pulmonary angiogram of the chest was performed with 100 mL Omnipa que-350 intravenous contrast. Additional 3D reconstructions utilizing coronal maximum intensity proje ction (MIP) were performed. Automated exposure control and iterative reconstruction technique were em ployed. The dose-length product was 297.37 mGy-cm. COMPARISON: None FINDINGS: Excellent contrast opacification of the pulmonary arteries. There is mild streak artifact from dense contrast in the superior vena cava and right atrium. Minimal scattered respiratory motion artifact wh ich does not significantly limit evaluation. There is a persistent pulmonary arterial filling defect consistent with embolism in the lateral basilar segmental pulmonary artery of the right lower lobe. T he filling defect previously seen in the posterior basilar segmental pulmonary artery has resolved. N o other pulmonary emboli identified. Mild atelectasis in the lingula and bilateral lower lobes. No pn eumonia, pulmonary edema, pleural effusion or pneumothorax. Heart size is normal. No pericardial effu norbert. Thoracic aorta is normal in caliber with no dissection. No pathologically enlarged thoracic lym phadenopathy. Postoperative changes of prior Whipple procedure. There is a new approximately 1.3 cm l lobo thin metallic likely ingested foreign body within the lumen of the second portion of the duodenum . C5-C7 anterior spinal fusion with bone graft cages and anterior plate and screw fixation. A prior l eft internal jugular central venous port catheter seen on chest radiograph dated 05/30/2020 has been r emoved. IMPRESSION: 1. Unchanged pulmonary embolism in the lateral basilar segmental pulmonary artery and resolution of p rior embolism in the posterior basilar segmental pulmonary artery of the right lower lobe. No new pul monary emboli. 2. New 1.4 cm linear metallic likely ingested foreign body in the second portion of the duodenum. 3. Postoperative change of prior Whipple procedure for reported necrotic cancer. See CT report dated 05/30/2020 discussed hypoenhancing region at the body of the pancreas raising concern for acute pancre atitis versus pancreatic cancer. Direct comparison is unable to be made due to the earlier phase of c arti in the current study. Reviewed, dictated and finalized at location A. IMPRESSION: 1. Unchanged pulmonary embolism in the lateral basilar segmental pulmonary yaima ry and resolution of prior embolism in the posterior basilar segmental pulmonar y artery of the right lower lobe. No new pulmonary emboli. 2. New 1.4 cm linear metallic likely ingested foreign body in the second portio n of the duodenum. 3. Postoperative change of prior Whipple procedure for reported necrotic cancer . See CT report dated 05/30/2020 discussed hypoenhancing region at the body of t he pancreas raising concern for acute pancreatitis versus pancreatic cancer. Di rect comparison is unable to be made due to the earlier phase of contrast in th e current study.
--- NOTE | 2020-06-14 07:56 | ED.SYNCOPE ---
HPI - Syncope General Chief Complaint: Syncope <Aleksandra Gutierrez MD - Last Filed: 06/14/20 19:22> Stated Complaint: syncope <Aleksandra Gutierrez MD - Last Filed: 06/14/20 19:22> Source: patient and EMS <Aleksandra Gutierrez MD - Last Filed: 06/14/20 19:22> Mode of arrival: EMS <Aleksandra Gutierrez MD - Last Filed: 06/14/20 19:22> Limitations: no limitations <Aleksandra Gutierrez MD - Last Filed: 06/14/20 19:22> History of Present Illness HPI narrative: Patient is a 69-year-old male with a history of pancreatic cancer, PE, GI bleed, discharged from [facility] yesterday who presents for evaluation of syncopal event. Patient reportedly went to the bathroom last night around midnight, syncopized while in the bathroom. He states he had a positive loss of consciousness. Patient called EMS, but ultimately refused ambulance. Patient then had another syncopal event, states he stood up after lying down in bed and ambulated to the bathroom and passed out before getting to the bathroom. Patient denies any head pain, neck pain, extremity pain or injury from the fall. He denies any numbness or weakness. He denies any chest pain, shortness of breath or abdominal pain. Patient states he has not had much oral intake since discharge. He has not noticed any recurrent dark or tarry stool. Patient is taking Eliquis for his PE. <Aleksandra Gutierrez MD - Last Filed: 06/14/20 19:22> Related Data Home Medications: Home Medications Medication Instructions Recorded Confirmed baclofen 10 mg PO TID 05/18/20 05/18/20 prochlorperazine maleate 05/30/20 apixaban [Eliquis] 10 mg PO BID 06/14/20 atorvastatin 06/14/20 duloxetine mg PO 06/14/20 ergocalciferol (vitamin D2) 1,250 mcg PO WEEKLY 06/14/20 ezetimibe mg 06/14/20 gabapentin 06/14/20 loperamide 06/14/20 qbhseqbicaah-bna-gjks-FA-vit K tablet PO 08/29/20 [Adults Multivitamin] ondansetron HCl 06/14/20 pantoprazole 40 mg PO BID 06/14/20 tamsulosin 0.4 mg PO DAILY 06/14/20 <Aleksandra Gutierrez MD - Last Filed: 06/14/20 19:22> Allergies/Adverse Reactions: Allergies Allergy/AdvReac Type Severity Reaction Status Date / Time hydrocodone Allergy Confusion Verified 06/14/20 08:10 <Aleksandra Gutierrez MD - Last Filed: 06/14/20 19:22> Review of Systems Review of Systems: Narrative: CONSTITUTIONAL: Denies fever, chills EYES: Denies visual changes CARDIOVASCULAR: Denies chest pain RESPIRATORY: Denies cough or dyspnea. GASTROINTESTINAL: Denies abdominal pain, nausea, vomiting, or diarrhea. GENITOURINARY: Denies dysuria or hematuria. SKIN: Denies rash or itching. MUSCULOSKELETAL: Denies back pain, joint pain, or myalgia. NEUROLOGIC: Denies headache, numbness, or weakness. <Aleksandra Gutierrez MD - Last Filed: 06/14/20 19:22> [facility] Past Medical History Medical History: Medical History (Updated 06/15/20 @ 00:00 by Tari Hancock) Aortic arch aneurysm Chemotherapy-induced neuropathy Dehydration Diverticulitis HTN (hypertension) Hyperlipidemia Intractable nausea and vomiting Pancreatic cancer Port-A-Cath in place left upper chest Trigger thumb of right hand With surgery <Aleksandra Gutierrez MD - Last Filed: 06/14/20 19:22> Surgical History Surgical History: Surgical History H/O abdominal surgery Whipple procedure due to pancreatic cancer H/O cataract extraction bilat H/O local excision of skin lesion On neck History of arthroscopic knee surgery Right History of colonoscopy History of fusion of cervical spine <Aleksandra Gutierrez MD - Last Filed: 06/14/20 19:22> Family History Family History: Family History (Updated 05/18/20 @ 20:40 by Ana Lugo NP) Father Pancreatic cancer Mother Kidney problem <Aleksandra Gutierrez MD - Last Filed: 06/14/20 19:22> Social History Social History: Social History (Reviewed 06/14/20 @ 08:32
--- NOTE | 2020-06-14 08:11 | ECG_ITS ---
Measurements Intervals [place] Rate: 79 P: 79 VT: 142 QRS: 82 QRSD: 85 T: 61 QT: 350 QTc: 402 Interpretive Statements SINUS RHYTHM POSSIBLE LEFT ATRIAL ENLARGEMENT BASELINE ARTIFACT- I, II, AVR, AVL, V2 BORDERLINE ECG Electronically Signed On 06-14-2020 9:52:54 CDT by Rocael Lomax D.O.
[2020-06-14 08:31] LABS: Basophils Absolute Auto 0.1 K/mm3 (0.0-0.1); Basophils Percent Auto 0.8 % (0.2-1.2); Eosinophils Percent Auto 0.6 % (0-4.4); Hematocrit 30.9 % (42.0-52.0); Immature Granulocyte Absolute 0.03 K/mm3 (0.00-0.031); Immature Granulocyte Percent A 0.4 % (0-0.5); Lymphocytes Absolute Auto 1.44 K/mm3 (0.9-3.2); Lymphocytes Percent Auto 19.9 % (18.3-44.2); Mean Corpuscular HGB Conc 32.4 g/dl (32-36); Mean Corpuscular Hemoglobin 29.6 pg (26-34); Mean Corpuscular Volume 91.4 fl (80-100); Monocytes Absolute Auto 0.7 K/mm3 (0.1-0.6); Monocytes Percent Auto 9.2 % (2.6-8.5); Neutrophils Percent Auto 69.1 % (45.5-73.1); Nucleated Red Blood Cells Perc 0.3 % (0.0-0.2); Platelet Count Result 769 k/mm3 (150-375); Red Blood Count 3.38 M/mm3 (4.6-6.20); Red Cell Distribution Width 19.3 % (11.5-14.5); White Blood Count 7.3 K/mm3 (4.5-10.0)
[2020-06-14] MEDS: SODIUM CHLORIDE 0.9% IV 1,000 ML 999 ML IV CONT (08:33)
[2020-06-14 08:42] LABS: Anion Gap 6 mmol/L (8-16); Blood Urea Nitrogen 12 mg/dL (9-20); Calcium 9.1 mg/dL (8.4-10.2); Carbon Dioxide 29 mmol/L (22-30); Chloride 98 mmol/L (98-107); Estimated CRCL calculation 59 ml/min; Estimated Glomerular Filt Rate > 60; Glucose 134 mg/dL (75-110); Potassium 4.3 mmol/L (3.4-5.0); Sodium 133 mmol/L (137-145)
[2020-06-14 08:44] LABS: INR 1.4; Prothrombin Time 16.7 Seconds (11.1-14.7)
[2020-06-14 08:45] LABS: Partial Thromboplastin Time 31.6 SECONDS (22.3-36.8)
[2020-06-14 08:53] LABS: Troponin I < 0.012 ng/mL (0.000-0.034)
[2020-06-14] MEDS: SODIUM CHLORIDE 0.9% IV 1,000 ML 150 ML IV CONT (11:23)
[2020-06-14 11:44] LABS: Troponin I < 0.012 ng/mL (0.000-0.034)
--- NOTE | 2020-06-14 18:09 | PC.NURSE ---
Patient has been accepted to [facility] room number [id number] Bed A, phone to call report is .
--- NOTE | 2020-06-14 20:18 | PC.NURSE ---
willard contacted eta has changed [id number]
--- NOTE | 2020-06-14 20:28 | PC.NURSE ---
called [facility] and they are unable to transfer tonight
--- NOTE | 2020-06-14 20:32 | PC.NURSE ---
called [facility] for transfer of patient. [facility] declined
--- NOTE | 2020-06-14 20:34 | PC.NURSE ---
called [facility] for transfer of patient and they were unable due to no trucks being available
--- NOTE | 2020-06-14 21:56 | PC.NURSE ---
called [facility] to get another eta. eta is now [phone]
--- NOTE | 2020-06-14 22:42 | PC.NURSE ---
[facility] is here
== END 2020-06-14 23:00 | disposition short-term general hospital (02) ==
PROVIDERS: Emergency Provider Emergency Medicine; PCP Family Medicine
DX: E86.0 Dehydration (principal); I95.1 Orthostatic hypotension; K92.2 Gastrointestinal hemorrhage, unspecified; Z86.711 Personal history of pulmonary embolism; Z79.01 Long term (current) use of anticoagulants; I10 Essential (primary) hypertension; E78.5 Hyperlipidemia, unspecified; G62.0 Drug-induced polyneuropathy; T45.1X5A Adverse effect of antineoplastic and immunosuppressive drugs, initial encounter; Z98.42 Cataract extraction status, left eye; Z98.41 Cataract extraction status, right eye; Z98.1 Arthrodesis status; R94.31 Abnormal electrocardiogram [ECG] [EKG]; I26.93 Single subsegmental thrombotic pulmonary embolism without acute cor pulmonale
CPT/HCPCS: 36415; 70450; 71275; 80048; 84484; 85025; 85610; 85730; 86850; 86900; 86901; 93005; 96360; 96361; 99285; J7030; Q9967

== ENCOUNTER 2020-07-19 07:17 | Emergency (ER) | payer MEDICARE, BC, SELFPAY ==
--- NOTE | ~2020-07-19 | CT_ITS ---
EXAMINATION: CT abdomen pelvis w con EXAM DATE: 07/19/2020 08:25 INDICATION: Abdominal pain. TECHNIQUE: Spiral CT of the abdomen and pelvis was performed without and then with intravenous inject ion of 100 mL Omnipaque 350. Axial, coronal and sagittal images were reviewed. The dose-length pro duct (DLP) for this examination was 247.41 mGy-cm. The exposure was tailored according to patient si ze (auto mA exposure control), and iterative reconstruction (ASIR) was used as additional dose reduct ion technique. Comparison is made to prior examination from 05/30/2020. FINDINGS: There is anastomotic material along the pancreatic body course, with additional surgical ch anges from Whipple procedure, absent spleen. Compared to May, previously seen hypodense pancreatic region now has significantly distended, and is identical in density to the vasculature on this mixed phase study, likely having direct arterial to venous shunting, 4.4 x 3.5 cm. This is most likely a p seudoaneurysm which has developed at location of previously seen acute pancreatitis. No rupture or un contained hemorrhage. The liver, adrenal glands are unremarkable. Gallbladder is unremarkable. No biliary obstruction. Po rtal and splenic veins are patent. Kidneys enhance symmetrically. There is no hydronephrosis. Ther e is mild prostatomegaly. The bladder is unremarkable. There is no retroperitoneal or pelvic lympha denopathy. There is moderate scattered arteriosclerotic disease. The appendix is normal. The stomach and small bowel are unremarkable. There is extensive descending, sigmoid colonic diverticulosis. There is no adjacent inflammatory change to suggest diverticulitis. No free intraperitoneal gas. The heart is normal in size. There are no pericardial or pleural ef fusions. The lung bases are unremarkable. There are no osteoblastic or osteolytic lesions identifie d. IMPRESSION: 1. 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 No rupture. Should be considered for treatment due to risk of ruptu re. 2. Extensive colonic diverticulosis. 3. Resolution of previously seen right basilar pulmonary emboli. Reviewed, dictated and finalized at location A. IMPRESSION: 1. 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 No rupture. Should be c onsidered for treatment due to risk of rupture. 2. Extensive colonic diverticulosis. 3. Resolution of previously seen right basilar pulmonary emboli.
--- NOTE | 2020-07-19 07:24 | ED.ABDPAIN ---
HPI - Abdominal Pain General Chief Complaint: Abdominal Pain Stated Complaint: abd pain Time Seen by Provider: 07/19/20 07:21 Source: RN notes reviewed History of Present Illness HPI narrative: Patient presents emergency department from home for abdominal pain. Patient states pain began approximately 5 days ago. The pain is located diffusely throughout the abdomen described as aching in nature. States is associated with intermittent nausea. He denies any fevers or chills chest pain shortness of breath diarrhea or any other symptoms. States he had a previous history of diverticulitis in November and this feels the same as prior episode Related Data Home Medications Medication Instructions Recorded Confirmed prochlorperazine maleate 05/30/20 apixaban [Eliquis] 10 mg PO BID 06/14/20 atorvastatin 06/14/20 ergocalciferol (vitamin D2) 1,250 mcg PO WEEKLY 06/14/20 ezetimibe mg 06/14/20 uvqimpaodyzt-rfj-zezr-FA-vit K tablet PO 06/14/20 [Adults Multivitamin] ondansetron HCl 06/14/20 pantoprazole 40 mg PO BID 06/14/20 finasteride mg 07/19/20 fludrocortisone mg 07/19/20 midodrine mg 07/19/20 Allergies Allergy/AdvReac Type Severity Reaction Status Date / Time hydrocodone Allergy Confusion Verified 07/19/20 07:27 Review of Systems Review of Systems: Narrative: Gen.: Denies fevers or chills ENT: Denies congestion Respiratory: Denies shortness of breath or cough CV: Denies chest pain or palpitations GI: See HPI denies burning, urgency, frequency or hematuria Musculoskeletal: Denies back pain or muscle pain Neuro: Denies numbness, tingling, weakness or focal weakness Skin: Denies rash Except as documented, all other systems reviewed and negative PMFSH Past Medical History Medical History Aortic arch aneurysm Chemotherapy-induced neuropathy Dehydration Diverticulitis HTN (hypertension) Hyperlipidemia Intractable nausea and vomiting Pancreatic cancer Port-A-Cath in place left upper chest Trigger thumb of right hand With surgery Family History Family History (Updated 05/18/20 @ 20:40 by Ana Lugo NP) Father Pancreatic cancer Mother Kidney problem Social History Social History Social History: the patient is and his is a durable for healthcare. The patient is a full code. He has 1 child. Patient stated that he retired from the [employer]. Lifelong nonsmoker. Does not use any marijuana or illicit drugs. Smoking status: Never smoker Alcohol intake: never Substance use: never Gender identity (if verbalized by the patient): Male Spiritual care concerns: No Exam Narrative: Exam Narrative: APPEARANCE: No acute distress, nontoxic, resting in bed HEENT: Normocephalic, atraumatic, OMM RESPIRATORY: No respiratory distress, clear to auscultation bilaterally with no rhonchi wheezing or rales CARDIOVASCULAR: RRR s murmur ABDOMINAL: Soft, nondistended, diffusely tender to palpation, no rebound or guarding MUSCULOSKELETAl: Moves all extremities. No clubbing, cyanosis or edema. NEURO: Awake and alert. Following commands, speech normal, no focal deficits SKIN:: Warm, dry. Normal Color PSYCHIATRIC: Normal affect/mood Course Course Emergency Course: Discussed with patient previous treatment for pancreatic cancer and surgeries were performed at [facility]. Discussed need for transfer in agreement to transfer up to [place] at this time. States he is on Eliquis with last dose last night Discussed with Dr. Sung at [facility] for general surgery accepts the patient in transfer Vital Signs Vital signs: Vital Signs Temperature 97.3 F L 07/19/20 07:25 Pulse Rate 86 07/19/20 07:25 Respiratory Rate 20 07/19/20 07:25 Blood Pressure 137/74 07/19/20 07:25 Pulse Oximetry 99 07/19/20 07:25 Temperature 98.0
[2020-07-19 07:25] VITALS: BP 137/74; PULSE 86; RESP 20; TEMP 36.3; O2SAT 99
[2020-07-19 07:36] LABS: Basophils Absolute Auto 0.1 K/mm3 (0.0-0.1); Basophils Percent Auto 0.8 % (0.2-1.2); Eosinophils Absolute Auto 0.1 K/mm3 (0-0.3); Eosinophils Percent Auto 0.7 % (0-4.4); Hematocrit 41.3 % (42.0-52.0); Hemoglobin 13.1 g/dL (14.0-18.0); Immature Granulocyte Absolute 0.02 K/mm3 (0.00-0.031); Immature Granulocyte Percent A 0.2 % (0-0.5); Lymphocytes Absolute Auto 2.04 K/mm3 (0.9-3.2); Mean Corpuscular HGB Conc 31.7 g/dl (32-36); Mean Corpuscular Hemoglobin 26.9 pg (26-34); Mean Corpuscular Volume 84.8 fl (80-100); Mean Platelet Volume 8.9 fl (7.4-10.4); Monocytes Absolute Auto 0.8 K/mm3 (0.1-0.6); Monocytes Percent Auto 7.1 % (2.6-8.5); Neutrophils Absolute Auto 7.8 K/mm3 (1.3-6.7); Neutrophils Percent Auto 72.2 % (45.5-73.1); Platelet Count Result 552 k/mm3 (150-375); Red Blood Count 4.87 M/mm3 (4.6-6.20); Red Cell Distribution Width 15.9 % (11.5-14.5); White Blood Count 10.8 K/mm3 (4.5-10.0)
[2020-07-19] MEDS: SODIUM CHLORIDE 0.9% IV 1,000 ML 999 ML IV CONT (07:39)
[2020-07-19 07:51] LABS: Alanine Aminotransferase 13 U/L (4-50); Albumin Level 4.7 g/dL (3.5-5.1); Alkaline Phosphatase 121 U/L (38-126); Anion Gap 11 mmol/L (8-16); Aspartate Amino Transferase 28 U/L (17-59); Bilirubin,Total 0.7 mg/dL (0.2-1.3); Blood Urea Nitrogen 7 mg/dL (9-20); Carbon Dioxide 31 mmol/L (22-30); Chloride 99 mmol/L (98-107); Estimated CRCL calculation 57 ml/min; Estimated Glomerular Filt Rate > 60; Glucose 140 mg/dL (75-110); Lipase 326 U/L (23-300); Potassium 3.9 mmol/L (3.4-5.0); Sodium 141 mmol/L (137-145)
[2020-07-19 07:53] LABS: INR 1.4; Prothrombin Time 16.3 Seconds (11.1-14.7)
[2020-07-19 08:50] LABS: Add Urine Microscopic? NO; Appearance Urine Clear (Clear); Bilirubin Urine Negative (Negative); Blood Urine Negative (Negative); Color Urine Colorless (Yellow); Glucose Urine UA Negative (Negative); Ketones Urine Negative (Negative); Leukocyte Esterase Ur Negative LEU/UL (Negative); Nitrate Urine Negative (Negative); Protein Urine Negative (Negative); Specific Grav Ur 1.012 (1.001-1.035); Urobilinogen Urine Negative mg/dL (<2.0)
[2020-07-19 11:26] VITALS: BP 170/72; PULSE 58; RESP 20; TEMP 36.5; O2SAT 99
[2020-07-19] MEDS: SODIUM CHLORIDE 0.9% IV 1,000 ML 125 ML IV CONT (12:51)
[2020-07-19 14:35] VITALS: BP 162/79; PULSE 64; RESP 18; TEMP 36.7; O2SAT 100
--- NOTE | 2020-07-19 16:42 | PC.NURSE ---
To [facility] via [facility]. Condition stable.
== END 2020-07-19 16:43 | disposition short-term general hospital (02) ==
PROVIDERS: Emergency Provider Emergency Medicine; PCP Family Medicine
DX: I72.8 Aneurysm of other specified arteries (principal); C25.9 Malignant neoplasm of pancreas, unspecified; I10 Essential (primary) hypertension; E78.5 Hyperlipidemia, unspecified; K57.90 Diverticulosis of intestine, part unspecified, without perforation or abscess without bleeding; Z79.01 Long term (current) use of anticoagulants
CPT/HCPCS: 36415; 74177; 80053; 81003; 83690; 85025; 85610; 85730; 96361; 96365; 99285; J0131; J7030; Q9967

== ENCOUNTER 2020-07-26 21:43 | Emergency (ER) | payer MEDICARE, BC, SELFPAY ==
[2020-07-26] VITALS (7 sets, daily range): BP systolic 105–134; BP diastolic 60–76; PULSE 76–85; RESP 15–24; TEMP 36.4–37.2; O2SAT 96–100
--- NOTE | ~2020-07-26 | CT_ITS ---
EXAMINATION: CTA chest abdomen pelvis DATE: 07/27/2020 11:04 CDT INDICATION: Recent abdominal aortic aneurysm repair. Abdominal pain. TECHNIQUE: Computed tomographic angiography (CTA) of the chest, abdomen, and pelvis was performed wit hout and with 100 mL Omnipaque-350 intravenous contrast. The dose-length product was 392.89 mGy-cm. M aximum intensity projection 3D-reconstructions of the aorta and other arteries were constructed by nayana chandler technologist on a separate workstation. Automated exposure control and iterative reconstruction art hnique were employed. COMPARISON: None. 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 No evidence f or rupture. No evidence for aortic dissection or intramural hematoma. Heart size normal. No significa nt pleural or pericardial effusion. There is basilar atelectasis. No evidence for pulmonary embolism. No thoracic lymphadenopathy. Trace pericardial fluid, likely physiologic. ABDOMEN AND PELVIS CTA: Fatty infiltration of the liver. There is aneurysm treatment coils in the upper abdomen likely within a branch of the left gastric artery just below the coils is a 5 x 5 cm hematoma. This is in continui ty with anterior inferior 14 x 4 cm hematoma along the gastric free edge, transverse mesocolon. There is also hemoperitoneum measuring 7 x 6 cm and the pelvis. No active extravasation identified. There is atherosclerosis. There is infrarenal abdominal aortic ectasia measuring 2.4 cm short axis. No evid ence for abdominal aortic aneurysm repair. Colonic diverticulosis without evidence for diverticulitis . Nonobstructive bowel gas pattern. Fatty infiltration of the liver. Spleen not visualized, possibly surgically absent. Adrenal glands an d kidneys are unremarkable. No acute osseous abnormality. IMPRESSION: 1. Evidence for treatment coils for aneurysm in the upper abdomen, likely in a branch of the left gas tric artery with adjacent hematoma which extends along the gastric free edge into the transverse meso colon. Additional hemoperitoneum in the pelvis. No active extravasation identified. 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 No evidence for aortic dissection, i ntramural hematoma or pulmonary embolism. Reviewed, dictated and finalized at location A. IMPRESSION: 1. Evidence for treatment coils for aneurysm in the upper abdomen, likely in a branch of the left gastric artery with adjacent hematoma which extends along th e gastric free edge into the transverse mesocolon. Additional hemoperitoneum in the pelvis. No active extravasation identified. 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 No evidence fo r aortic dissection, intramural hematoma or pulmonary embolism.
--- NOTE | 2020-07-26 21:42 | ED.ABDPAIN ---
HPI - Abdominal Pain General Chief Complaint: Abdominal Pain Stated Complaint: rlq Source: patient and EMS Mode of arrival: EMS Limitations: no limitations History of Present Illness HPI narrative: Patient is a 69-year-old male with a history of pancreatic cancer, Whipple surgery, recent aortic arch aneurysm with repair at [facility] 1 week previously, discharged from that facility yesterday, who presents for evaluation of right lower quadrant abdominal pain. Pain described as acute in nature, began suddenly this evening while the patient was at rest. No recent heavy lifting. He reports mild bloating and pain. No urinary symptoms. No chest pain, shortness of breath, lightheadedness or dizziness. No recent fever or chills. Related Data Home Medications Medication Instructions Recorded Confirmed prochlorperazine maleate 05/30/20 apixaban [Eliquis] 10 mg PO BID 06/14/20 atorvastatin 06/14/20 ergocalciferol (vitamin D2) 1,250 mcg PO WEEKLY 06/14/20 ezetimibe mg 06/14/20 vrejstbmtqsv-[id number]-reza-FA-vit K tablet PO 06/14/20 [Adults Multivitamin] ondansetron HCl 06/14/20 pantoprazole 40 mg PO BID 06/14/20 finasteride mg 07/19/20 fludrocortisone mg 07/19/20 midodrine mg 07/19/20 Allergies Allergy/AdvReac Type Severity Reaction Status Date / Time hydrocodone Allergy Confusion Verified 07/26/20 21:45 Review of Systems Review of Systems: Narrative: CONSTITUTIONAL: Denies fever ENT: Denies rhinorrhea, congestion, sore throat, or otalgia. CARDIOVASCULAR: Denies chest pain, palpitations, or edema. RESPIRATORY: Denies cough or dyspnea. GASTROINTESTINAL: Reports abdominal pain, nausea, denies vomiting GENITOURINARY: Denies dysuria or hematuria. SKIN: Denies rash or itching. MUSCULOSKELETAL: Denies back pain, joint pain, or myalgia. NEUROLOGIC: Denies headache, numbness, or weakness. [facility] Past Medical History Medical History (Updated 07/26/20 @ 23:16 by Aleksandra Gutierrez MD) Aortic arch aneurysm Chemotherapy-induced neuropathy Dehydration Diverticulitis HTN (hypertension) Hyperlipidemia Intractable nausea and vomiting Pancreatic cancer Port-A-Cath in place left upper chest Trigger thumb of right hand With surgery Surgical History Surgical History H/O abdominal surgery Whipple procedure due to pancreatic cancer H/O cataract extraction bilat H/O local excision of skin lesion On neck History of arthroscopic knee surgery Right History of colonoscopy History of fusion of cervical spine Family History Family History (Updated 05/18/20 @ 20:40 by Ana Lugo NP) Father Pancreatic cancer Mother Kidney problem Social History Social History Social History: the patient is and his is a durable for healthcare. The patient is a full code. He has 1 child. Patient stated that he retired from the [employer]. Lifelong nonsmoker. Does not use any marijuana or illicit drugs. Smoking status: Never smoker Alcohol intake: never Substance use: never Gender identity (if verbalized by the patient): Male Spiritual care concerns: No Exam Narrative: Exam Narrative: GENERAL: Awake, alert, conversant HEAD: Normocephalic, atraumatic. EYES: PERRLA and EOMI. ENT: Nares clear, no rhinorrhea or epistaxis. Mucous membranes moist. NECK: Supple. CHEST: No respiratory distress, breathing even and non labored HEART: Regular rate, sinus rhythm ABDOMEN: Mild distention, tender in the right lower quadrant, incision sites clean, dry and intact, no ecchymoses, mild guarding, peritoneal abdomen EXTREMITIES: Normal range of motion. No edema. SKIN: Warm, dry, no rash. NEURO:No focal deficits. Alert and oriented x3 Course Vital Signs Vital signs: Vital Signs Temperature 36.4 C 07/26/20 21:41 Pulse Rate 85 07/26/20 21:41 Respi
[2020-07-26 22:03] LABS: Basophils Absolute Auto 0.1 K/mm3 (0.0-0.1); Basophils Percent Auto 0.4 % (0.2-1.2); Eosinophils Percent Auto 0.3 % (0-4.4); Hematocrit 32.2 % (42.0-52.0); Hemoglobin 10.4 g/dL (14.0-18.0); Immature Granulocyte Absolute 0.05 K/mm3 (0.00-0.031); Immature Granulocyte Percent A 0.4 % (0-0.5); Lymphocytes Absolute Auto 2.24 K/mm3 (0.9-3.2); Lymphocytes Percent Auto 16.4 % (18.3-44.2); Mean Corpuscular HGB Conc 32.3 g/dl (32-36); Mean Corpuscular Hemoglobin 27.7 pg (26-34); Mean Corpuscular Volume 85.6 fl (80-100); Mean Platelet Volume 9.3 fl (7.4-10.4); Monocytes Absolute Auto 1.2 K/mm3 (0.1-0.6); Monocytes Percent Auto 8.9 % (2.6-8.5); Neutrophils Percent Auto 73.6 % (45.5-73.1); Platelet Count Result 527 k/mm3 (150-375); Red Blood Count 3.76 M/mm3 (4.6-6.20); White Blood Count 13.7 K/mm3 (4.5-10.0)
[2020-07-26] MEDS: MORPHINE SULFATE (*CRX) 4 MG/ML INJ IV PUSH ×2 (22:08→23:19)
[2020-07-26] MEDS: SODIUM CHLORIDE 0.9% IV 1,000 ML 999 ML IV CONT (22:08)
[2020-07-26] MEDS: ONDANSETRON INJ 4 MG/2 ML VIAL IV PUSH (22:08)
[2020-07-26 22:19] LABS: Alanine Aminotransferase 9 U/L (4-50); Alkaline Phosphatase 114 U/L (38-126); Anion Gap 8 mmol/L (8-16); Aspartate Amino Transferase 29 U/L (17-59); Bilirubin,Total 1.8 mg/dL (0.2-1.3); Blood Urea Nitrogen 14 mg/dL (9-20); Calcium 9.6 mg/dL (8.4-10.2); Carbon Dioxide 28 mmol/L (22-30); Chloride 99 mmol/L (98-107); Estimated CRCL calculation 60 ml/min; Estimated Glomerular Filt Rate > 60; Glucose 121 mg/dL (75-110); Potassium 3.7 mmol/L (3.4-5.0); Sodium 135 mmol/L (137-145)
[2020-07-26] MEDS: TUBING, BLOOD SET 1 EACH XX (23:02)
[2020-07-26] MEDS: SODIUM CHLORIDE 0.9% IV 250 ML 30 ML (23:14)
[2020-07-26] MEDS: HYDROmorphone HCL INJ (*CRX) 1 MG/ML SYR 0.5 MG IV PUSH (23:36)
[2020-07-26] MEDS: SODIUM CHLORIDE 0.9% IV 1,000 ML 125 ML IV CONT (23:39)
--- NOTE | 2020-07-27 00:39 | PC.NURSE ---
Report to Danae Rivera at [facility], to go to room 16834-8. transport called
[2020-07-27] MEDS: HYDROmorphone HCL INJ (*CRX) 1 MG/ML SYR IM (00:55)
[2020-07-27 01:07] VITALS: BP 126/71; PULSE 72; RESP 16; TEMP 37.1; O2SAT 97
== END 2020-07-27 01:09 | disposition short-term general hospital (02) ==
PROVIDERS: Emergency Provider Emergency Medicine
DX: K91.840 Postprocedural hemorrhage of a digestive system organ or structure following a digestive system procedure (principal); K66.1 Hemoperitoneum; D64.89 Other specified anemias; Z79.01 Long term (current) use of anticoagulants; I10 Essential (primary) hypertension; E78.5 Hyperlipidemia, unspecified; Z98.42 Cataract extraction status, left eye; Z98.41 Cataract extraction status, right eye; Z98.1 Arthrodesis status
CPT/HCPCS: 36415; 36430; 71275; 74174; 80053; 85025; 86850; 86900; 86901; 86923; 96361; 96372; 96374; 96375; 96376; 99285; J1170; J2270; J2405; J7030; J7050; P9016; Q9967

== ENCOUNTER 2020-09-03 14:46 | Emergency (ER) | payer MEDICARE, BC, SELFPAY ==
--- NOTE | ~2020-09-03 | XR_ITS ---
EXAMINATION: XR abdomen/kub 1V EXAM DATE: 09/03/2020 15:14 INDICATION: constipation X 1 month. Pancreatic cancer. TECHNIQUE: Frontal projection(s) of the abdomen for interpretation. Comparison is made to prior exami nation from 05/18/2020. FINDINGS: There is moderate amount of colonic stool and gas. No small bowel dilation, nonobstructiv e bowel gas pattern. There are no suspicious calcifications identified. There is no organomegaly suspected. The bones are unremarkable. Lung bases are clear. IMPRESSION: Moderate colonic stool. No obstruction. Reviewed, dictated and finalized at location A. [facility]
[2020-09-03 14:46] VITALS: BP 143/90; PULSE 83; RESP 14; TEMP 37.4; O2SAT 99
--- NOTE | 2020-09-03 15:12 | ED.ABDPAIN ---
HPI - Abdominal Pain General Chief Complaint: Abdominal Pain Stated Complaint: constipation Time Seen by Provider: 09/03/20 15:06 Source: patient Mode of arrival: EMS Limitations: no limitations History of Present Illness HPI narrative: 69-year-old male Reports problems with constipation for a month Usually goes on Fridays and Tuesdays and reports that the experiences are large firm and painful He does not normally take any stool softeners though Reports that this week he skipped the Tuesday poop, tried taking Colace today and some kind of suppository which did not help, and came to the ER because he has fullness and discomfort and a feeling like he cannot successfully move his bowels No vomiting, no diarrhea, no fever He has had both a Whipple procedure and a thoracic aortic aneurysm repair at [facility] this year, most recent surgery was in June Related Data Home Medications Medication Instructions Recorded Confirmed prochlorperazine maleate 05/30/20 apixaban [Eliquis] 10 mg PO BID 06/14/20 atorvastatin 06/14/20 ergocalciferol (vitamin D2) 1,250 mcg PO WEEKLY 06/14/20 ezetimibe mg 06/14/20 uffegslclfam-siz-iblj-FA-vit K tablet PO 06/14/20 [Adults Multivitamin] ondansetron HCl 06/14/20 pantoprazole 40 mg PO BID 06/14/20 finasteride mg 07/19/20 fludrocortisone mg 07/19/20 midodrine mg 07/19/20 Allergies Allergy/AdvReac Type Severity Reaction Status Date / Time hydrocodone Allergy Confusion Verified 09/03/20 14:53 Review of Systems Review of Systems: All systems reviewed & are unremarkable except as noted in HPI and below Constitutional: Constitutional: Denies chills, Reports fatigue, Denies fever(s), Denies headache(s) and Reports weakness ENT: Denies headache(s) and Denies nasal congestion Cardiovascular: Cardiovascular: Denies chest pain, Denies leg edema, Denies palpitations and Denies dyspnea Respiratory: Respiratory: Denies cough, Denies dyspnea and Denies wheezing Gastrointestinal: Gastrointestinal: Reports abdominal pain, Reports bloating, Reports constipation, Denies diarrhea, Denies nausea and Denies vomiting Genitourinary: Genitourinary: Denies hematuria, Denies dysuria and Denies urinary frequency Musculoskeletal: Musculoskeletal: Reports myalgias, Denies deformity, Denies arthralgias, Denies joint swelling, Denies muscle weakness and Denies numbness Integumentary/Breasts: Skin/Breast: Denies rash and Denies wounds Neurologic: Denies headache(s), Denies focal weakness, Denies numbness and Reports weakness Psychiatric: Psychiatric: Reports no additional psychiatric complaints Endocrine: Endocrine: Denies fatigue and Denies palpitations Hematologic/Lymphatic: Hematologic/Lymphatic: Denies easy bleeding and Denies easy bruising Allergic/Immunologic: Allergic/Immunologic: Denies wheezing PMFSH Past Medical History Medical History (Updated 09/03/20 @ 15:35 by Jacob Arndt MD) Aortic arch aneurysm Chemotherapy-induced neuropathy Dehydration Diverticulitis HTN (hypertension) Hyperlipidemia Intractable nausea and vomiting Pancreatic cancer Port-A-Cath in place left upper chest Trigger thumb of right hand With surgery Surgical History Surgical History H/O abdominal surgery Whipple procedure due to pancreatic cancer H/O cataract extraction bilat H/O local excision of skin lesion On neck History of arthroscopic knee surgery Right History of colonoscopy History of fusion of cervical spine Family History Family History (Updated 05/18/20 @ 20:40 by Ana Lugo NP) Father Pancreatic cancer Mother Kidney problem Social History Social History Social History: the patient is and his is a durable for healthcare. The patient is a full code. He has 1 child. Patient stated that he retired from the [employer]
[2020-09-03] MEDS: polyethylene glycoL 3350 17 GM POWD.PACK PO (15:35)
[2020-09-03] MEDS: MAGNESIUM CITRATE 300 ML BTL PO (15:36)
[2020-09-03 16:07] VITALS: BP 144/75; PULSE 76; RESP 20; O2SAT 97
[2020-09-03 17:15] VITALS: BP 134/78; PULSE 79; RESP 21; O2SAT 99
--- NOTE | 2020-09-03 17:17 | PC.NURSE ---
Pt reported he produced a moderate sized bowel movement.
== END 2020-09-03 17:18 | disposition home or self-care (01) ==
PROVIDERS: Emergency Provider Emergency Medicine; PCP Family Medicine
DX: K56.41 Fecal impaction (principal); I10 Essential (primary) hypertension; E78.5 Hyperlipidemia, unspecified; Z98.42 Cataract extraction status, left eye; Z98.41 Cataract extraction status, right eye; Z98.1 Arthrodesis status; C25.9 Malignant neoplasm of pancreas, unspecified
CPT/HCPCS: 74018; 99283; A9270